=== PATIENT | female | born 1935 | race Caucasian/White ===

== ENCOUNTER → 2017-06-17 | Outpatient (CLI) | payer MEDICARE ==
[~2017-06-17] MED LIST: HYDR500C3 PO; LEVO75TA5 PO; PRAV40TA2 PO
== END | disposition home or self-care (01) ==
LOC: CFH 08:57
PROVIDERS: ATTEND Physician Assistant
DX: I70.90 Unspecified atherosclerosis (principal); D45 Polycythemia vera; E55.9 Vitamin D deficiency, unspecified; E78.4 Other hyperlipidemia; I95.9 Hypotension, unspecified; M54.2 Cervicalgia; E61.1 Iron deficiency; E03.9 Hypothyroidism, unspecified; L98.9 Disorder of the skin and subcutaneous tissue, unspecified; R42 Dizziness and giddiness; R73.01 Impaired fasting glucose; R01.1 Cardiac murmur, unspecified
CPT/HCPCS: 93880

== ENCOUNTER → 2017-07-12 | Outpatient (CLI) | payer MEDICARE | END | disposition home or self-care (01) | LOC: CFH 14:10 | PROVIDERS: ATTEND Physician Assistant | DX: G31.84 Mild cognitive impairment of uncertain or unknown etiology (principal); E78.4 Other hyperlipidemia; E03.9 Hypothyroidism, unspecified; E61.1 Iron deficiency; R01.1 Cardiac murmur, unspecified; D45 Polycythemia vera; I10 Essential (primary) hypertension; L98.9 Disorder of the skin and subcutaneous tissue, unspecified; E55.9 Vitamin D deficiency, unspecified; E42 Marasmic kwashiorkor; R73.01 Impaired fasting glucose; I95.9 Hypotension, unspecified; M54.2 Cervicalgia; I70.90 Unspecified atherosclerosis | CPT/HCPCS: 70551; 82565 ==

== ENCOUNTER → 2018-04-18 | Outpatient (CLI) | payer MEDICARE | END | disposition home or self-care (01) | LOC: CFH 11:59 | PROVIDERS: ATTEND Physician Assistant | DX: I08.2 Rheumatic disorders of both aortic and tricuspid valves (principal); E78.5 Hyperlipidemia, unspecified; I10 Essential (primary) hypertension | CPT/HCPCS: 93306 ==

== ENCOUNTER 2018-10-22 10:42 | Outpatient (CLI) | payer MEDICARE | END 2018-10-22 23:59 | disposition home or self-care (01) | LOC: CFH 10:42 | PROVIDERS: ATTEND Physician Assistant | DX: E03.9 Hypothyroidism, unspecified (principal) | CPT/HCPCS: 36415; 84443 ==